=== PATIENT | female | born 1965 | race African-American/Black ===

== ENCOUNTER 2016-09-04 21:59 | Emergency (ER) | payer OTHER ==
[~2016-09-04] VITALS: Ht 185.4 cm; Wt 122.5 kg
[2016-09-05 00:10] LABS: Urine Bilirubin Negative (Negative); Urine Blood Negative /uL (Negative); Urine Color Yellow (Yellow); Urine Glucose Normal (Normal); Urine Ketone Negative (Negative); Urine Nitrite Negative (Negative); Urine RBC <1 /hpf (0 - 4); Urine Squamous Epithelial Cell FEW /hpf (<5); Urine Urobilinogen Normal (Negative); Urine pH 6.5 (5.0-8.0)
[2016-09-05 00:43] LABS: Albumin 3.7 g/dL (3.4-5.0); BUN/Creatinine Ratio 10.3; Basophils # (auto) 0.3 uL; Basophils % (auto) 4.2 % (0.0-2.0); Calcium 9.3 mg/dL (8.5-10.1); DEFINITIVE VIEW TRANSMISSION; Eosinophils # (auto) 0.3 uL; Eosinophils % (auto) 4.5 % (0.0-7.0); Hematocrit 41.9 % (36.0-46.0); Hemoglobin 13.2 g/dL (12.2-16.2); Lymphocytes # (auto) 2.1 uL; Mean Corpuscular Hemoglobin 27.5 pg (28.0-32.0); Mean Corpuscular Hgb Conc. 31.4 g/dL (32.0-36.0); Mean Corpuscular Volume 87.6 fL (80.0-100.0); Mean Platelet Volume 8.5 fL (7.4-10.4); Monocytes # (auto) 0.5 uL; Monocytes % (auto) 6.8 % (0.0-12.0); Neutrophils # (auto) 4.5 uL; Neutrophils % (auto) 57.5 % (37.0-80.0); Platelet Count (auto) 362 10^3/uL (140-450); Potassium 3.4 mmol/L (3.5-5.1); White Blood Cell 7.7 10^3/uL (4.4-10.8)
[2016-09-05 00:46] LABS: Bilirubin, Total 0.2 mg/dL (0.2-1.0); Total Protein 7.9 g/dL (6.4-8.2)
[2016-09-05 08:20] VITALS: BP 153/100
== END 2016-09-05 09:00 | disposition home or self-care (01) ==
LOC: ER 22:04
DX: D17.1 Benign lipomatous neoplasm of skin and subcutaneous tissue of trunk (principal); Z88.2 Allergy status to sulfonamides
CPT/HCPCS: 36415; 80053; 81001; 81025; 85025

== ENCOUNTER 2017-02-21 21:51 | Emergency (ER) | payer OTHER ==
[~2017-02-21] VITALS: Ht 185.4 cm; Wt 122.5 kg
[2017-02-21 22:19] LABS: Basophils # (auto) 0.1 uL; Basophils % (auto) 0.9 % (0.0-2.0); CONDITION Y; Eosinophils # (auto) 0.4 uL; Eosinophils % (auto) 5.6 % (0.0-7.0); Hematocrit 38.6 % (36.0-46.0); Hemoglobin 12.7 g/dL (12.2-16.2); Lymphocytes # (auto) 2.3 uL; Lymphocytes % (auto) 31.8 % (10.0-50.0); Mean Corpuscular Hemoglobin 28.7 pg (28.0-32.0); Mean Corpuscular Volume 86.9 fL (80.0-100.0); Mean Platelet Volume 8.4 fL (7.4-10.4); Monocytes # (auto) 0.6 uL; Monocytes % (auto) 7.9 % (0.0-12.0); Neutrophils % (auto) 53.8 % (37.0-80.0); Platelet Count (auto) 330 10^3/uL (140-450); Red Cell Distribution Width 13.7 % (11.6-16.0); White Blood Cell 7.4 10^3/uL (4.4-10.8)
[2017-02-21 22:33] LABS: INR 0.94 (0.9-1.15); Partial Thromboplastin Time 26.8 sec (22.64-33.71); Prothrombin Time 10.2 sec (9.37-12.3)
[2017-02-21 22:45] LABS: Albumin 3.7 g/dL (3.4-5.0); Alkaline Phosphatase 70 U/L (45-117); Anion Gap 7 (5-15); Aspartate Aminotransferase 22 U/L (15-37); BUN/Creatinine Ratio 13.5; Bilirubin, Total 0.3 mg/dL (0.2-1.0); Blood Urea Nitrogen 12 mg/dL (7-18); Calcium 8.5 mg/dL (8.5-10.1); Carbon Dioxide 27 mmol/L (21-32); Chloride 105 mmol/L (98-107); GFR African American 86 mL/min; GFR Non-African American 71 mL/min; Glucose 100 mg/dL (74-106); Magnesium 2.1 mg/dL (1.6-2.6); Sodium 139 mmol/L (136-145); Total Protein 7.5 g/dL (6.4-8.2)
[2017-02-21 23:19] LABS: B-Type Natriuretic Peptide 26.74 pg/mL (0-100)
[2017-02-21 23:23] LABS: Temperature: 22.9 C (20.0-25.0)
[2017-02-22 01:34] VITALS: BP 153/77
[2017-02-22] MEDS ORDERED: HYDROcodone-ACET 5/325MG TAB PO ONE (02:15)
[2017-02-22] MEDS ORDERED: ASPirin 81 mg TAB PO ONE (02:15)
== END 2017-02-22 02:54 | disposition left against medical advice (07) ==
LOC: ER 21:54
DX: R07.9 Chest pain, unspecified (principal); I10 Essential (primary) hypertension; Z88.1 Allergy status to other antibiotic agents; Z90.49 Acquired absence of other specified parts of digestive tract
CPT/HCPCS: 36415; 71010; 80053; 83735; 83880; 84443; 84484; 85025; 85610; 85730; 93005

== ENCOUNTER 2019-01-20 14:20 | Emergency (ER) | payer MEDICAID, OTHER ==
[~2019-01-20] VITALS: Ht 185.4 cm; Wt 122.5 kg
[2019-01-20 14:30] VITALS: BP 155/73
[2019-01-20] MEDS ORDERED: cefTRIAXone SOD 1,000 MG VL IM ONE (15:15)
== END 2019-01-20 16:09 | disposition home or self-care (01) ==
LOC: ER 14:24
DX: J20.9 Acute bronchitis, unspecified (principal); J03.90 Acute tonsillitis, unspecified; I10 Essential (primary) hypertension; M54.5 Low back pain; G89.29 Other chronic pain; Z90.49 Acquired absence of other specified parts of digestive tract; Z76.0 Encounter for issue of repeat prescription
CPT/HCPCS: 71046; 96372; 99283; J0696

== ENCOUNTER 2019-01-27 18:21 | Emergency (ER) | payer MEDICAID ==
[~2019-01-27] VITALS: Ht 185.4 cm; Wt 122.5 kg
[2019-01-27 20:11] VITALS: BP 149/112
[2019-01-27] MEDS ORDERED: KETOROLAC TROMETH 30 MG/ML 1ML VIAL IM ONE (20:30)
== END 2019-01-27 20:52 | disposition home or self-care (01) ==
LOC: ER 18:31
DX: S83.92XA Sprain of unspecified site of left knee, initial encounter (principal); M13.862 Other specified arthritis, left knee; M25.462 Effusion, left knee; I10 Essential (primary) hypertension; Z88.2 Allergy status to sulfonamides; Z90.49 Acquired absence of other specified parts of digestive tract; X58.XXXA Exposure to other specified factors, initial encounter; Y93.89 Activity, other specified; Y99.8 Other external cause status; Y92.89 Other specified places as the place of occurrence of the external cause
CPT/HCPCS: 73562; 96372; 99283; J1885

== ENCOUNTER 2020-05-13 06:03 | Day surgery (SDC) | payer MEDICAID ==
[~2020-05-13] VITALS: Ht 185.4 cm; Wt 127.0 kg
[~2020-05-13 06:03] MED LIST: ATOR20TA50 PO; GABA100C9 PO; GABA300C10 PO; HYDR12.56 PO; MELO1TAB56 PO; METF-370 PO; METO-158 PO; MULT1CHW PO; OXYB5TAB61 PO
[2020-05-13] MEDS ORDERED: ceFAZolin 1GM/50ML 100 ML IV ONE (06:46)
[2020-05-13] MEDS ORDERED: MIDAZOLAM HCL 1MG/1ML-2 ML VIAL ONE (06:51)
[2020-05-13] MEDS ORDERED: fentaNYL CITRATE 100 MCG/2 ML VL ONE (06:51)
[2020-05-13] MEDS ORDERED: GLYCOPYRROLATE 0.2 MG/ML 1ML VIAL ONE (06:52)
[2020-05-13] MEDS ORDERED: DexAMETHasone SOD PHOS 10MG/1ML VIAL INJ ONE (06:52)
[2020-05-13] MEDS ORDERED: ONDANSETRON HCL 4 MG/2 ML VIAL ONE (06:52)
[2020-05-13] MEDS ORDERED: LIDOCAINE 2% (LOCAL ANESTH.) PF 5ml SDV ONE (06:52)
[2020-05-13] MEDS ORDERED: KETOROLAC TROMETH 30 MG/ML 1ML VIAL ONE (06:52)
[2020-05-13] MEDS ORDERED: PROPOFOL 10 MG/ML 20 ML IV ONE (06:52)
[2020-05-13] MEDS ORDERED: HEPARIN SODIUM (PORCINE) 5000 UNITS/ML 1ML VIAL ONE (06:56)
[2020-05-13] MEDS ORDERED: SUCCINYLCHOLINE CHLORIDE 20 MG/ML 10ML VIAL IV ONE (07:22)
[2020-05-13] MEDS ORDERED: BUPIVACAINE 0.25% INJ 50ML VIAL ONE (07:22)
[2020-05-13] MEDS ORDERED: LIDOCAINE W/ EPINEPHRINE 1 % INJ 30ML ONE (07:22)
[2020-05-13] MEDS ORDERED: ROCURONIUM 10MG/ML 10ML VIAL IV ONE (08:36)
[2020-05-13] MEDS ORDERED: MEPERIDINE HCL (50 MG/ML) 1 ML VIAL ONE (08:54)
[2020-05-13] MEDS ORDERED: CEPH-37 PO (09:42)
[2020-05-13] MEDS ORDERED: DOCU-94 PO (09:42)
[2020-05-13] MEDS ORDERED: ALBUTEROL SULF 2.5 MG/0.5ML(0.5%) NEB SOLN NEB ONE (09:45)
[2020-05-13] MEDS ORDERED: ONDANSETRON HCL 4 MG/2 ML VIAL IV PRN (09:45)
[2020-05-13] MEDS ORDERED: HYDROmorphone HCL 2 MG/ML VL IV PRN (09:45)
[2020-05-13] MEDS ORDERED: ALBUTEROL SULF 2.5 MG/0.5ML(0.5%) NEB SOLN ONE (10:21)
--- NOTE | 2020-05-13 10:29 | NUR ---
Respiratory note: CALLED PACU PER RN PT DOES NOT NEED PRN MED NEB TX, THAT WAS ONLY ORDERED PRN. WILL PAGE RT IF NEEDED.
[2020-05-13 10:35] VITALS: BP 144/82
== END 2020-05-13 10:55 | disposition home or self-care (01) ==
LOC: SUR 06:03
PROVIDERS: ATTEND Surgery
DX: D17.1 Benign lipomatous neoplasm of skin and subcutaneous tissue of trunk (principal); E11.9 Type 2 diabetes mellitus without complications; I10 Essential (primary) hypertension; E66.9 Obesity, unspecified; Z88.2 Allergy status to sulfonamides; Z90.49 Acquired absence of other specified parts of digestive tract; Z68.36 Body mass index [BMI] 36.0-36.9, adult; Z20.828 Contact with and (suspected) exposure to other viral communicable diseases
CPT/HCPCS: 21933; 82962; 88304; J0330; J0690; J1100; J1644; J1885; J2001; J2175; J2250; J2405; J2704; J3010; J3490; U0003; A4565

== ENCOUNTER 2022-02-23 18:48 | Emergency (ER) | payer MEDICAID ==
[~2022-02-23] VITALS: Ht 185.4 cm; Wt 128.4 kg
[~2022-02-23 18:48] MED LIST changes: +CEPH-37 PO; +DOCU-94 PO
[2022-02-23 20:39] LABS: Urine Bacteria NONE SEEN /hpf (None Seen); Urine Blood Negative /uL (Negative); Urine Mucus FEW (None Seen); Urine Specific Gravity 1.029 (1.001-1.035); Urine WBC 1 /hpf (0 - 5)
[2022-02-23 20:52] LABS: Basophils # (auto) 0.2 10 ^3/uL (0-0.2); Basophils % (auto) 2.5 % (0.0-2.0); Eosinophils # (auto) 0.3 10 ^3/uL (0-0.8); Eosinophils % (auto) 4.3 % (0.0-7.0); Hematocrit 37.7 % (36.0-46.0); Hemoglobin 12.6 g/dL (12.2-16.2); Lymphocytes # (auto) 1.7 10 ^3/uL (0.4-5.4); Lymphocytes % (auto) 22.7 % (10.0-50.0); Mean Corpuscular Hemoglobin 28.6 pg (28.0-32.0); Mean Corpuscular Hgb Conc. 33.3 g/dL (32.0-36.0); Mean Corpuscular Volume 85.6 fL (80.0-100.0); Monocytes # (auto) 0.4 10 ^3/uL (0-1.3); Monocytes % (auto) 5.7 % (0.0-12.0); Neutrophils # (auto) 4.8 10 ^3/uL (1.6-8.6); Neutrophils % (auto) 64.8 % (37.0-80.0); Red Blood Cells 4.41 10^6/uL (4.0-5.20); Red Cell Distribution Width 13.9 % (11.8-14.3); White Blood Cell 7.3 10^3/uL (4.4-10.8)
[2022-02-23 21:07] LABS: Albumin 3.9 g/dL (3.4-5.0); BUN/Creatinine Ratio 15.2; Calcium 9.6 mg/dL (8.5-10.1); Potassium 3.2 mmol/L (3.5-5.1)
[2022-02-23 21:19] LABS: Bilirubin, Total 0.2 mg/dL (0.2-1.0); Total Protein 8.1 g/dL (6.4-8.2)
[2022-02-24] MEDS ORDERED: PERCOT PO (05:10)
[2022-02-24] MEDS ORDERED: NITR-87 PO (05:10)
[2022-02-24 05:25] VITALS: BP 148/75
== END 2022-02-24 05:41 | disposition home or self-care (01) ==
LOC: ER 18:48
DX: N20.9 Urinary calculus, unspecified (principal); E11.9 Type 2 diabetes mellitus without complications; I10 Essential (primary) hypertension; Z90.49 Acquired absence of other specified parts of digestive tract; Z88.2 Allergy status to sulfonamides
CPT/HCPCS: 36415; 74176; 80053; 81001; 83690; 85025

== ENCOUNTER 2024-01-15 09:05 | Inpatient (IN) | payer MEDICAID ==
[~2024-01-15] VITALS: Ht 185.4 cm; Wt 125.0 kg
[~2024-01-15 09:05] MED LIST changes: +GABA-1250 PO; +GABA-1308 PO; -GABA100C9 PO; -GABA300C10 PO; -HYDR12.56 PO; +HYDR12.59 PO; +MELO15TA29 PO; -MELO1TAB56 PO; +NITR-87 PO; +OXYB5TAB14 PO; -OXYB5TAB61 PO; +PERCOT PO
[2024-01-15 10:11] LABS: Urine Bacteria FEW /hpf (None Seen); Urine Blood Negative /uL (Negative); Urine Budding Yeast OCCASIONAL /hpf (None Seen); Urine Clarity Turbid (Clear); Urine Mucus FEW (None Seen); Urine Protein, UAD TRACE (Negative); Urine Specific Gravity 1.019 (1.001-1.035); Urine Urobilinogen Normal (Negative); Urine WBC 21 /hpf (0 - 5); Urine pH 7.5 (5.0-9.0)
[2024-01-15 10:12] LABS: Chloride 104 mmol/L (98-107); Potassium 3.3 mmol/L (3.5-5.1); Sodium 140 mmol/L (136-145)
[2024-01-15 10:12] LABS: Urine Color STRAW (Yellow)
[2024-01-15 10:13] VITALS: PULSE 81; RESP 20; O2SAT 97
[2024-01-15 10:13] LABS: Anion Gap 7 (5-15); Carbon Dioxide 29 mmol/L (20-30)
[2024-01-15] MEDS: cloNIDine HCL 0.1 MG TAB PO ONE (10:14)
[2024-01-15 10:18] LABS: BUN/Creatinine Ratio 9.5 (10.0-20.0); Blood Urea Nitrogen 9 mg/dL (9-23); Glucose 108 mg/dL (74-106)
[2024-01-15 10:41] LABS: Basophils # (auto) 0.1 10 ^3/uL (0-0.2); Basophils % (auto) 1.1 % (0.0-2.0); Eosinophils # (auto) 0.4 10 ^3/uL (0-0.8); Eosinophils % (auto) 5.3 % (0.0-7.0); Hematocrit 39.3 % (36.0-46.0); Hemoglobin 12.9 g/dL (12.2-16.2); Lymphocytes # (auto) 1.8 10 ^3/uL (0.4-5.4); Lymphocytes % (auto) 26.5 % (10.0-50.0); Mean Corpuscular Hemoglobin 27.7 pg (28.0-32.0); Mean Corpuscular Hgb Conc. 32.9 g/dL (32.0-36.0); Mean Corpuscular Volume 84.2 fL (80.0-100.0); Monocytes # (auto) 0.7 10 ^3/uL (0-1.3); Monocytes % (auto) 9.9 % (0.0-12.0); Neutrophils # (auto) 3.9 10 ^3/uL (1.6-8.6); Neutrophils % (auto) 57.2 % (37.0-80.0); Red Blood Cells 4.67 10^6/uL (4.0-5.20); Red Cell Distribution Width 14.3 % (11.8-14.3); White Blood Cell 6.8 10^3/uL (4.4-10.8)
[2024-01-15] MEDS: IOHEXOL 350 MG/ML 100ML IJ ONE (12:23)
[2024-01-15] MEDS ORDERED: HYDROcodone-ACET 5/325MG TAB PO PRN (15:00)
[2024-01-15] MEDS ORDERED: ONDANSETRON HCL 4 MG/2 ML VIAL IV PRN (15:00)
[2024-01-15] MEDS ORDERED: MORPHINE SULFATE INJ 2 MG/ml SYRG IV PRN ×2 (15:00)
[2024-01-15] MEDS ORDERED: NITROGLYCERIN 0.4 MG SL TAB SL PRN (15:00)
[2024-01-15] MEDS ORDERED: DOCUSATE SOD 100 MG CAP PO PRN (15:00)
[2024-01-15] MEDS ORDERED: DEXTROSE (50%) 50ML SYRG IV PRN (19:30)
[2024-01-15] MEDS: InsuLIN REG 1unit/0.01ml Soln (100units/ml) SC SCH (22:00)
[2024-01-15] MEDS: cefTRIAXone 1GM/50ML D5W 50 ML IV SCH (22:09)
[2024-01-15] MEDS: METOPROLOL TARTRATE 50 MG TAB PO SCH (22:10)
[2024-01-15] MEDS: ATORVASTATIN 20 MG TAB PO SCH (22:10)
[2024-01-15] MEDS: ACCU-CHEK COMFORT CURVE STRIP VI SCH (22:19)
[2024-01-16 06:16] LABS: Basophils # (auto) 0 10 ^3/uL (0-0.2); Basophils % (auto) 0.5 % (0.0-2.0); Eosinophils # (auto) 0.4 10 ^3/uL (0-0.8); Hematocrit 38.4 % (36.0-46.0); Hemoglobin 12.6 g/dL (12.2-16.2); Lymphocytes # (auto) 1.6 10 ^3/uL (0.4-5.4); Lymphocytes % (auto) 18.3 % (10.0-50.0); Mean Corpuscular Hemoglobin 27.6 pg (28.0-32.0); Mean Corpuscular Hgb Conc. 32.6 g/dL (32.0-36.0); Mean Corpuscular Volume 84.4 fL (80.0-100.0); Monocytes # (auto) 0.7 10 ^3/uL (0-1.3); Monocytes % (auto) 7.4 % (0.0-12.0); Neutrophils # (auto) 6.3 10 ^3/uL (1.6-8.6); Neutrophils % (auto) 69.8 % (37.0-80.0); Red Blood Cells 4.55 10^6/uL (4.0-5.20); Red Cell Distribution Width 14.5 % (11.8-14.3)
[2024-01-16 06:21] LABS: Anion Gap 9 (5-15); Carbon Dioxide 28 mmol/L (20-30); Chloride 101 mmol/L (98-107); Sodium 138 mmol/L (136-145)
[2024-01-16 06:27] LABS: BUN/Creatinine Ratio 11.8 (10.0-20.0); Blood Urea Nitrogen 12 mg/dL (9-23); Glucose 115 mg/dL (74-106); Triglycerides 127 mg/dL (< 150)
[2024-01-16 06:28] LABS: LDL Cholesterol 108 mg/dL (< 100)
[2024-01-16 06:29] LABS: Cholesterol 183 mg/dL (< 200)
[2024-01-16 06:30] LABS: HDL Cholesterol 61 mg/dL (40-59)
[2024-01-16 06:56] LABS: Magnesium 1.8 mg/dL (1.6-2.6)
[2024-01-16 09:40] VITALS: BP 170/83; PULSE 80; RESP 18; TEMP 98.3; O2SAT 98
[2024-01-16] MEDS ORDERED: PATIENTS OWN MEDICATION (Hydrochlorothiazide 12.5 MG) PO SCH (10:00)
[2024-01-16] MEDS ORDERED: ATORVASTATIN 20 MG TAB PO SCH (10:00)
[2024-01-16] MEDS ORDERED: cefTRIAXone 1GM/50ML D5W 50 ML IV SCH (10:00)
[2024-01-16] MEDS: hydroCHLOROthiazide 25 MG TAB PO SCH (10:16)
[2024-01-16] MEDS: ENOXAPARIN SOD 40 MG/0.4 ML SYRINGE SC SCH (10:17)
[2024-01-16] MEDS ORDERED: GABA-1251 PO (10:39)
[2024-01-16] MEDS ORDERED: GAB100C PO (10:39)
[2024-01-16] MEDS ORDERED: OXYB5TAB14 (10:39)
[2024-01-16] MEDS ORDERED: POTA-220 (10:39)
[2024-01-16 11:12] LABS: Hepatitis B Surface Antigen Negative (Negative)
[2024-01-16 11:33] LABS: Hepatitis C Antibody Negative (Negative)
[2024-01-16 13:00] VITALS: BP 156/83; PULSE 56; RESP 18; TEMP 97.2; O2SAT 92
[2024-01-16 15:17] VITALS: BP 111/75; PULSE 62
[2024-01-16] MEDS: ACETAMINOPHEN 325 MG TAB PO PRN (15:25)
[2024-01-16 17:00] VITALS: BP 133/79; PULSE 63; RESP 20; TEMP 98.1; O2SAT 97
[2024-01-16] MEDS: POTASSIUM CHL 20 Meq TABLET PO ONE (17:51)
[2024-01-16 20:00] VITALS: PULSE 70
[2024-01-16 21:00] VITALS: BP 155/78; PULSE 66; RESP 18; TEMP 97.8; O2SAT 96
[2024-01-17] MEDS: guaiFENesin-DM 100/10mg/5ml SYR PO PRN (00:58)
[2024-01-17 01:00] VITALS: BP 168/76; PULSE 63; RESP 18; TEMP 98.1; O2SAT 95
[2024-01-17] MEDS: hydrALAZINE HCL 20 MG/ML VL IV PRN (04:45)
[2024-01-17 05:00] VITALS: BP 162/92; PULSE 71; RESP 18; TEMP 97.7; O2SAT 96
[2024-01-17 08:00] VITALS: PULSE 55
[2024-01-17 08:36] VITALS: BP 159/75; PULSE 68; RESP 17; TEMP 97.1; O2SAT 100
[2024-01-17 13:00] VITALS: BP 145/89; PULSE 63; RESP 18; TEMP 97.3; O2SAT 97
[2024-01-17 16:48] VITALS: BP 156/77; PULSE 66; RESP 20; TEMP 97.7; O2SAT 97
== END 2024-01-17 18:45 | disposition home or self-care (01) | DRG 199 ==
LOC: ER 09:05 → TELE 14:56 → TELE-CENTR 01-16 10:09
PROVIDERS: ADMIT Internal Medicine; ATTEND Internal Medicine
DX: I16.0 Hypertensive urgency (principal); E11.9 Type 2 diabetes mellitus without complications; E78.5 Hyperlipidemia, unspecified; N39.0 Urinary tract infection, site not specified; E87.6 Hypokalemia; Z88.2 Allergy status to sulfonamides; Z90.49 Acquired absence of other specified parts of digestive tract; Z79.84 Long term (current) use of oral hypoglycemic drugs
CPT/HCPCS: 36415; 70450; 70496; 71045; 80048; 80061; 81001; 82962; 83036; 83735; 84484; 85025; 86803; 87086; 87340; 93005; 93306; 96365; 96372; 99291; G0378; J1815

== ENCOUNTER 2025-06-07 22:27 | Emergency (ER) | payer MEDICAID ==
[~2025-06-07] VITALS: Ht 185.4 cm; Wt 123.0 kg
[~2025-06-07 22:27] MED LIST changes: -CEPH-37 PO; -DOCU-94 PO; +GAB100C PO; -GABA-1250 PO; +GABA-1251 PO; -GABA-1308 PO; -MULT1CHW PO; -NITR-87 PO; +OXYB5TAB14; -OXYB5TAB14 PO; -PERCOT PO; +POTA-220
--- NOTE | 2025-06-07 22:43 | ED.PDOC ---
History of Present Illness HPI Comments 60 y/o F presents from urgent care for c/c of bilateral ankle swelling. Denial of any pain, numbness, tingling, shortness of breath, or further associated symptoms. Chief Complaint: Lower Extremity Time Seen by MD: 22:40 Primary Care Provider: NONE Reviewed Notes: Nurses Notes, Medications, Allergies Allergies: Coded Allergies: Sulfa Drugs (Verified Allergy, Unknown, 05/09/20) Home Meds Active Scripts Potassium Chloride (POTASSIUM CHLORIDE CR) 10 Meq Tb, 1 TAB PO HS for 14 Days, #14 TAB Prov:KANDIS PARKER [employer]HOU[employer] MANAGER 06/08/25 Furosemide (Lasix) 20 Mg Tb, 1 TAB PO DAILY for 14 Days, #14 TAB Prov:KANDIS PARKER [employer]HOUSE MANAGER 06/08/25 Reported Medications Potassium Chloride (Klor-Con M20) 20 Meq Tab 01/16/24 Gabapentin (Gabapentin) 400 Mg Cap, 1 CAP PO HS 1 CAPSULE BY MOUTH EVERYDAY AT BEDTIME 01/16/24 Gabapentin (Gabapentin) 100 Mg Cap, 1 CAP PO QAM 1 CAPSULE BY MOUTH IN THE MORNING 01/16/24 Oxybutynin Chloride (Oxybutynin Chloride) 5 Mg Tab, 2 DAILY 01/16/24 Meloxicam (Meloxicam) 15 Mg Tab, 1 TAB PO DAILY, #30 TAB 2 Refills 05/09/20 Atorvastatin Calcium (ATORVASTATIN CALCIUM) 20 Mg Tab, 1 TAB PO DAILY, #30 TAB 5 Refills 05/09/20 Metoprolol Tartrate (Metoprolol Tartrate) 50 Mg Tab, 50 MG PO BID for 30 Days, MG 05/09/20 Hydrochlorothiazide (Hydrochlorothiazide) 12.5 Mg Cap, 12.5 MG PO DAILY for 30 Days, MG 05/09/20 Metformin Hydrochloride (Metformin Hcl) 500 Mg Tab, 500 MG PO IBID for 30 Days, MG 05/09/20 Mode of Arrival: Ambulatory Past Medical History PAST MEDICAL HISTORY: DM, HTN Surgical History: Cholecystectomy DIRECTOR PAID MEDIA History: No Pertinent DIRECTOR PAID MEDIA History Family History Family History: Unknown Social History Smoker: Non-Smoker Alcohol: Denies ETOH Use Drugs: Denies Drug Use Lives In: Home All Other Systems: Reviewed and Negative (Comprehensive review of systems are negative unless stated in HPI) Physical Exam General Appearance: No Apparent Distress, Normal HEENT: Pharynx Normal Neck: Full Range of Motion, Non-Tender Respiratory: Chest Non-Tender, Lungs Clear, No Accessory Muscle Use, No Respiratory Distress, Normal Breath Sounds Cardiovascular: No Edema, No JVD, No Murmur, No Gallop, Normal Peripheral Pulses, Regular Rate/Rhythm Breast Exam: Deferred Gastrointestinal: No Organomegaly, Non Tender, No Pulsatile Mass, Normal Bowel Sounds, Soft Genitalia: Deferred Pelvic: Deferred Rectal: Deferred Extremities: No calf tenderness, Normal capillary refill, Normal range of motion, Non-tender, Pedal edema (right +1 pitting foot/ankle left trace edema. NO erythema, lesions or pain) Musculoskeletal : Apperance: Normal Neurologic: Alert, No Motor Deficits, Normal Affect, Normal Mood, No Sensory Deficits Cerebellar Function: Normal Reflexes: R Ankle (wnl), L Ankle (wnl) Skin: Dry, Normal Color, Warm Lymphatic: No Adenopathy Was a procedure done? Was a procedure done?: No Differential Dx Considerations may include: DVT, fluid retention, cellulitis, among others X-Ray, Labs, Meds, VS Vital Signs Date Time Temp Pulse Resp B/P (MAP) Pulse Ox O2 Delivery O2 Flow Rate FiO2 06/08/25 00:08 58 19 98 Room Air 06/08/25 00:08 97.8 58 19 156/74 (101) 98 97.8 06/07/25 22:29 98.2 66 18 131/83 95 98.2 Lab Test 06/07/25 22:56 Range/Units White Blood Count 6.9 4.4-10.8 10^3/uL Red Blood Count 4.31 4.0-5.20 10^6/uL Hemoglobin 12.2 12.2-16.2 g/dL Hematocrit 37.1 36.0-46.0 % Mean Corpuscular Volume 86.2 80.0-100.0 fL Mean Corpuscular Hemoglobin 28.2 28.0-32.0 pg Mean Corpuscular Hemoglobin Concent 32.8 32.0-36.0 g/dL Red Cell Distribution Width 14.6 H 11.8-14.3 % Platelet Count 304 140-450 10^3/uL Mean Platelet Volume 8.6 6.9-10.8 fL Neutrophils (%) (Auto) 61.7 37.0-80.0 % Lymphocytes (%) (Auto) 23.6 10.0-50.0 % Monocytes (%) (Auto) 9.0 0.0-12.0 % Eosinophils (%) (Auto) 5.0 0.0-7.0 % Basophils (%) (Auto) 0.7 0.0-2.0 % Neutrophils # (Auto) 4.2 1.6-8.6 10 ^3/uL Lymphocytes # (Auto) 1.6 0.4-5.4 10 ^3/uL Monocytes # (Auto) 0.6 0-1.3 10 ^3/uL Eosinophils # (Auto) 0.3 0-0.8 10 ^3/uL Basophils # (Auto) 0.1 0-0.2 10 ^3/uL Nucleated Red Blood Cells 0.1 % Sodium Level 144 136-145 mmol/L Potassium Level 3.3 L 3.5-5.1 mmol/L Chloride Level 104 98-107 mmol/L Carbon Dioxide Level 28 20-31 mmol/L Anion Gap 12 5-15 Blood Urea Nitrogen 8 L 9-23 mg/dL Creatinine 0.99 0.550-1.02 mg/dL Glomerular Filtration Rate Calc 65 >90 mL/min BUN/Creatinine Ratio 8.1 L 10.0-20.0 Serum Glucose 103 74-106 mg/dL Calcium Level 9.5 8.7-10.4 mg/dL Total Bilirubin 0.2 0.2-1.0 mg/dL Aspartate Amino Transferase (AST) 22 13-40 U/L Alanine Aminotransferase (ALT) 29 7-40 U/L Alkaline Phosphatase 80 46-116 U/L B-Type Natriuretic Peptide 43.49 0-100 pg/mL Total Protein 7.9 5.7-8.2 g/dL Albumin 4.6 3.2-4.8 g/dL X-Ray, Labs, Meds, VS Comment start trial of lasix and K+. Elevate and compression stockings. f/u with pcp in 2-3 days as needed, er return precautions givine Time of 1ST Reevaluation: 23:10 Reevaluation 1ST: Unchanged Time of 2ND Reevaluation: 00:04 Reevaluation 2ND: Improved Patient Education/Counseling: Diagnosis, Treatment, Need For Follow Up Family Education/Counseling: No Family Present SEPSIS Sepsis Screen Date sepsis recognized/suspect: Jun 07, 2025 Time Sepsis recognized/suspect: 2236 Recent Procedure: No On Antibiotic Therapy: No Respiratory Rate >20: No Heart Rate >90: No Temp<36 C (96.8 F) or >38.3 C: No SBP <90 or MAP <65 mmHG: No New Acute Mental Status Change: No Is the patient on CPAP, BIPAP,: No Physician Orders Urinalysis (06/07/25 22:46) Vital Signs Date Time Temp Pulse Resp B/P (MAP) Pulse Ox O2 Delivery O2 Flow Rate FiO2 06/08/25 00:08 58 19 98 Room Air 06/08/25 00:08 97.8 58 19 156/74 (101) 98 97.8 06/07/25 22:29 98.2 66 18 131/83 95 98.2 Laboratory Tests Test 06/07/25 22:56 White Blood Count 6.9 10^3/uL (4.4-10.8) Departure 1 Departure Time of Disposition: 00:02 Impression: Primary Impression: Peripheral edema Disposition: 01 HOME / SELF CARE / HOMELESS Condition: Stable e-Prescriptions Potassium Chloride (POTASSIUM CHLORIDE CR) 10 Meq Tb 1 TAB PO HS for 14 Days, #14 TAB Prov: KANDIS PARKER 06/08/25 Furosemide (Lasix) 20 Mg Tb 1 TAB PO DAILY for 14 Days, #14 TAB Prov: KANDIS PARKER 06/08/25 Discharged With: Self Critical Care Note Critical Care Time?: No Stability Stability form required: No Heart Score Heart Score: Heart Score Response (Comments) Value History N/A 0 EKG N/A 0 Age N/A 0 Risk Factors N/A 0 Troponin N/A 0 Total 0 I personally scribed for ER ([email or web address]) on 06/07/25 at 22:43. Electronically submitted by Gm Layne ([email or web address]). ER Jun 07, 2025 22:43 KANDIS PARKER Jun 07, 2025 22:54
[2025-06-07 23:21] LABS: Hematocrit 37.1 % (36.0-46.0); Hemoglobin 12.2 g/dL (12.2-16.2); Mean Corpuscular Hemoglobin 28.2 pg (28.0-32.0); Mean Corpuscular Volume 86.2 fL (80.0-100.0); Nucleated Red Blood Cells % 0.1 %
[2025-06-07 23:27] LABS: Alanine Aminotransferase 29 U/L (7-40); Albumin 4.6 g/dL (3.2-4.8); Alkaline Phosphatase 80 U/L (46-116); Anion Gap 12 (5-15); BUN/Creatinine Ratio 8.1 (10.0-20.0); Calcium 9.5 mg/dL (8.7-10.4); Carbon Dioxide 28 mmol/L (20-31); Chloride 104 mmol/L (98-107); Glucose 103 mg/dL (74-106); Sodium 144 mmol/L (136-145); Total Protein 7.9 g/dL (5.7-8.2)
[2025-06-07 23:47] LABS: Bilirubin, Total 0.2 mg/dL (0.2-1.0); Blood Urea Nitrogen 8 mg/dL (9-23); Potassium 3.3 mmol/L (3.5-5.1)
[2025-06-08] MEDS ORDERED: FURO1TAB33 PO (00:04)
[2025-06-08] MEDS ORDERED: POTA-36 PO (00:04)
[2025-06-08 00:08] VITALS: BP 156/74; PULSE 58; RESP 19; TEMP 97.8; O2SAT 98
== END 2025-06-08 00:08 | disposition home or self-care (01) ==
LOC: ER 22:27
DX: R60.0 Localized edema (principal); E11.9 Type 2 diabetes mellitus without complications; I10 Essential (primary) hypertension; Z79.899 Other long term (current) drug therapy; Z88.2 Allergy status to sulfonamides; Z90.49 Acquired absence of other specified parts of digestive tract
CPT/HCPCS: 36415; 80053; 83880; 85025